=== PATIENT | female | born 1980 | race Caucasian/White ===

== ENCOUNTER 2023-09-19 09:43 | Emergency (ER) | payer MEDICAID ==
[~2023-09-19] VITALS: Ht 154.9 cm; Wt 60.8 kg
[2023-09-19 09:56] VITALS: BP 154/88; PULSE 98; RESP 20; TEMP 98.7; O2SAT 100
[2023-09-19 10:35] VITALS: O2SAT 100
[2023-09-19] MEDS: NACL 0.9% 1,000 ML IV ONE (10:40)
[2023-09-19] MEDS: DICYCLOMINE 20 MG/2 ML VIAL IM ONE (10:43)
[2023-09-19] MEDS: ONDANSETRON 4 MG/2 ML VIAL IVP ONE (10:43)
[2023-09-19 10:54] LABS: EOSINOPHILS % (AUTO) 0.1 % (0.0-4.0); HEMATOCRIT 49.8 % (36-48); HEMOGLOBIN 16.6 g/dL (12.0-16.0); LYMPHOCYTES # (AUTO) 0.7 K/uL (2.5-16.5); LYMPHOCYTES % (AUTO) 3.5 % (20.5-51.1); MEAN CORPUSCULAR HEMOGLOBIN 29 pg (27-31); MEAN CORPUSCULAR HGB CONC 33 g/dL (33-37); MONOCYTES # (AUTO) 1.1 K/uL (0.8-1.0); MONOCYTES % (AUTO) 5.5 % (1.7-9.3); NEUTROPHILS # (AUTO) 18.6 K/uL (1.8-7.7); NEUTROPHILS % (AUTO) 90.9 % (42.2-75.2); PLATELET COUNT (AUTO) 305 K/uL (140-450); RED BLOOD CELL COUNT(AUTO) 5.66 MIL/uL (4.20-5.40); RED CELL DISTRIBUTION WIDTH 13.4 % (11.6-13.7); WHITE BLOOD COUNT (AUTO) 20.5 K/uL (4.8-10.8)
[2023-09-19 11:04] LABS: APPEARANCE,URINE HAZY (CLEAR); BILIRUBIN,URINE NEGATIVE (NEGATIVE); BLOOD, URINE TRACE-I (NEGATIVE); COLOR,URINE YELLOW (YELLOW); LEUKOCYTE ESTERASE ,URINE NEGATIVE (NEGATIVE); NITRITE, URINE NEGATIVE (NEGATIVE); PH,URINE 5.5 (5.0-9.0); PROTEIN,URINE 2+ (NEGATIVE); UGLUCOSE 3+ (NEGATIVE); UROBILINOGEN,URINE 0.2 EU/dL (0.2 - 1)
[2023-09-19 11:08] LABS: ANION GAP 18.4 (8-16); CALCIUM 9.7 mg/dL (8.5-10.1); CARBON DIOXIDE 21.5 mmol/L (21-32); CREATININE 0.8 mg/dL (0.6-1.3); POTASSIUM 3.9 mmol/L (3.5-5.1)
[2023-09-19 11:15] LABS: ALBUMIN 4.1 g/dL (3.4-5.0); BILIRUBIN,DIRECT 0.1 mg/dL (0.0-0.3); TOTAL BILIRUBIN 0.5 mg/dL (0.0-1.0); TOTAL PROTEIN, SERUM 8.6 g/dL (6.4-8.2)
[2023-09-19 11:28] LABS: RBC,URINE 0-5 /HPF (0-5)
[2023-09-19 11:29] LABS: BACTERIA,URINE 1+ /HPF (None Seen); SQUAMOUS EPITHELIAL CELL,UR 20-50 /LPF (0-3 (FEW)); WBC,URINE 0-5 /HPF (0-5); YEAST,URINE Few /HPF (None Seen)
[2023-09-19] MEDS ORDERED: KETOROLAC 30 MG/ML VIAL ONE (13:03)
[2023-09-19] MEDS: KETOROLAC 30 MG/ML VIAL IVP ONE (13:11)
[2023-09-19 13:12] VITALS: O2SAT 98
[2023-09-19] MEDS ORDERED: IBUP-2213 PO (14:35)
[2023-09-19] MEDS ORDERED: ONDA-188 SL (14:35)
[2023-09-19] MEDS ORDERED: BEN10 PO (14:35)
[2023-09-19] MEDS ORDERED: ACET500T99 PO (14:35)
[2023-09-19 14:48] VITALS: BP 157/85; PULSE 98; RESP 20; TEMP 98.1; O2SAT 98
== END 2023-09-19 14:48 | disposition home or self-care (01) ==
LOC: MED 09:43
DX: A08.4 Viral intestinal infection, unspecified (principal); N83.201 Unspecified ovarian cyst, right side; E11.9 Type 2 diabetes mellitus without complications; Z79.899 Other long term (current) drug therapy
CPT/HCPCS: 36415; 74177; 80048; 80076; 81001; 81025; 83690; 85025; 87086; 96361; 96374; 96375; 99285; J0500; J1885; J2405; J7030; Q9967